=== PATIENT | male | born 1960 | race Caucasian/White ===

== ENCOUNTER 2017-05-30 13:54 | Emergency (ER) | payer MEDICAID ==
[~2017-05-30] VITALS: Ht 182.9 cm; Wt 105.0 kg
[2017-05-30 13:55] VITALS: BP 112/76; PULSE 78; RESP 18; TEMP 98.1; O2SAT 98
--- NOTE | 2017-05-30 15:16 | RADRPT ---
EXAM DATE/TIME: 05/30/2017 14:52 [place] COMPARISON: No previous studies available for comparison. INDICATIONS : Left ankle pain. Patient states he missed a step on stairs. MEDICAL HISTORY : None. SURGICAL HISTORY : Vein surgery. ENCOUNTER: Initial ACUITY: 2 days PAIN SCORE: 8/10 LOCATION: Left ankle. FINDINGS: There is lateral predominant soft tissue swelling. No fracture or subluxation seen of the left ankle. No radiopaque foreign body. CONCLUSION: Lateral soft tissue swelling without fracture or subluxation. Colt Weinstein MD on May 30, 2017 at 15:13 Board Certified Radiologist. This report was verified electronically.
[2017-05-30] MEDS ORDERED: LISI2.5T3 PO (15:23)
[2017-05-30] MEDS ORDERED: CO Q10CA (15:23)
[2017-05-30] MEDS ORDERED: MULTTAB67 PO (15:23)
[2017-05-30] MEDS ORDERED: CYCL5TAB PO (15:23)
[2017-05-30] MEDS ORDERED: METF500T PO (15:23)
[2017-05-30] MEDS ORDERED: XANA2TAB2 PO (15:23)
[2017-05-30] MEDS ORDERED: GARL1CAP6 (15:23)
[2017-05-30] MEDS ORDERED: SPIR25TA PO (15:23)
[2017-05-30] MEDS ORDERED: PRAS10TA PO (15:23)
[2017-05-30] MEDS ORDERED: VITA250C3 CHEW (15:23)
[2017-05-30] MEDS ORDERED: CARV6.25 PO (15:23)
[2017-05-30] MEDS ORDERED: pro air (15:23)
[2017-05-30] MEDS ORDERED: FURO1TAB62 PO (15:23)
[2017-05-30] MEDS ORDERED: ASPI-516 CHEW (15:23)
[2017-05-30] MEDS ORDERED: ACETAMINOPHEN 500 MG CPLT PO ONE (15:30)
[2017-05-30] MEDS ORDERED: IBUPROFEN 600 MG TAB PO ONE (15:30)
--- NOTE | 2017-05-30 15:34 | PD ---
HPI Chief Complaint: Injury Time Seen by Provider: 15:19 Travel History International Travel<30 days: No Contact w/Intl Traveler<30days: No Traveled to known affect area: No History of Present Illness HPI 56-year-old male who presents to emergency room with complaints of left ankle pain yesterday. He reports that he was going down the stairs yesterday, reports that he missed one step and twisted his left ankle. Denies any trauma to his head or neck. Denies any LOC. Patient reports increased pain and swelling to his left lateral ankle. Patient reports that he has been elevating and lifting his left lower extremity, reports that he just wanted to make sure none of his bones were broken PFSH Past Medical History Hx Anticoagulant Therapy: Yes Cardiovascular Problems: Yes Diabetes: Yes Respiratory: Yes Social History Alcohol Use: No Tobacco Use: No Substance Use: No Allergies-Medications (Allergen,Severity, Reaction): Coded Allergies: Penicillins (Verified Allergy, Severe, 05/30/17) Reported Meds & Prescriptions Reported Meds & Active Scripts Active Reported Multiple Vitamin 1 Tab 1 Tab PO DAILY Garlic 1 Mg Capsule 1,000 Mg Co Q 10 (Coenzyme Q10 (Ubidecarenone)) 10 Mg Cap 200 Mg Vitamin C (Ascorbic Acid) 250 Mg Chew 1,000 Mg CHEW BID [pro air] Flexeril (Cyclobenzaprine HCl) 5 Mg Tab 10 Mg PO HS Xanax (Alprazolam) 2 Mg Tab 2 Mg PO Q8H PRN Spironolactone 25 Mg Tab 25 Mg PO BIDPC Lisinopril 2.5 Mg Tab 2.5 Mg PO DAILY Aspirin 81 Mg Chew 81 Mg CHEW DAILY Coreg (Carvedilol) 6.25 Mg Tab 6.25 Mg PO BID Metformin (Metformin HCl) 500 Mg Tab 500 Mg PO BIDPC Lasix (Furosemide) 20 Mg Tab 20 Mg PO DAILY Effient (Prasugrel) 10 Mg Tab 10 Mg PO DAILY Review of Systems General / Constitutional: No: Fever Eyes: No: Visual changes HENT: No: Headaches Cardiovascular: No: Chest Pain or Discomfort Respiratory: No: Shortness of Breath Gastrointestinal: No: Abdominal Pain Genitourinary: No: Dysuria Musculoskeletal: Positive: Limited ROM (ankle pain), Edema (left ankle swelling ), Pain (left ankle pain) Skin: No Rash Neurologic: No: Weakness Psychiatric: No: Depression Endocrine: No: Polydipsia Hematologic/Lymphatic: No: Easy Bruising Physical Exam Narrative GENERAL: Well-nourished, well-developed patient. SKIN: Focused skin assessment warm/dry. HEAD: Normocephalic. EYES: No scleral icterus. No injection or drainage. NECK: Supple, trachea midline. No JVD or lymphadenopathy. CARDIOVASCULAR: Regular rate and rhythm without murmurs, gallops, or rubs. RESPIRATORY: Breath sounds equal bilaterally. No accessory muscle use. GASTROINTESTINAL: Abdomen soft, non-tender, nondistended. MUSCULOSKELETAL: No cyanosis, or edema to RLE LLE: Patient with pain to lateral malleolus, no open fracture, pulses intact, neurovascular intact, with range of motion to toes or left knee or hip BACK: Nontender without obvious deformity. No CVA tenderness. Data Data Last Documented VS Vital Signs Date Time Temp Pulse Resp B/P (MAP) Pulse Ox O2 Delivery O2 Flow Rate FiO2 05/30/17 13:55 98.1 78 18 112/76 (88) 98 Room Air Orders Orders Ankle, Complete ([id number]) (05/30/17 ) Ice/Cold Pack (05/30/17 15:19) Ibuprofen (Motrin) (05/30/17 15:30) MDM Medical Decision Making Medical Screen Exam Complete: Yes Emergency Medical Condition: Yes Medical Record Reviewed: Yes Interpretation(s) Vital Signs Date Time Temp Pulse Resp B/P (MAP) Pulse Ox O2 Delivery O2 Flow Rate FiO2 05/30/17 13:55 98.1 78 18 112/76 (88) 98 Room Air Differential Diagnosis ankle sprain/fracture Narrative Course 56-year-old male with trip and fall yesterday. Last Impressions Ankle X-Ray 05/30/17 0000 Signed Impressions: Service Date/Time: Tuesday, May 30, 2017 14:52 - CONCLUSION: Lateral soft tissue swelling without fracture or subluxation. Colt Weinstein MD Patient with no acute fractures. Patiently placed in an hannah bandage. Recommended ice, elevation and NSAIDs for pain. Discussed with him that I cannot rule out ligamentous injuries, he will need to follow-up with orthopedic surgeon if pain continues as he will ultimately require MRI to rule out ligamentous injuries Diagnosis Primary Impression: Ankle sprain Qualified Codes: S93.402A - Sprain of unspecified ligament of left ankle, initial encounter Patient Instructions: General Instructions Additional Instructions: Please provide patient with a copy of their studies at discharge Please follow up with your primary care doctor in 2-3 days Return to the ER if symptoms worsen or progress Return to the ER as needed Rest/ice and elevate your left lower extremity Follow up with orthopedic surgeon if symptoms do not improve Disposition: 01 DISCHARGE HOME Condition: Stable Lana Mendosa DO May 30, 2017 15:34
== END 2017-05-30 15:51 | disposition home or self-care (01) ==
LOC: NEPD 13:54
DX: S93.402A Sprain of unspecified ligament of left ankle, initial encounter (principal); E11.9 Type 2 diabetes mellitus without complications; W10.9XXA Fall (on) (from) unspecified stairs and steps, initial encounter; Z79.82 Long term (current) use of aspirin; Z79.899 Other long term (current) drug therapy; Z88.0 Allergy status to penicillin
CPT/HCPCS: 73610; 99283